=== PATIENT | female | born 1985 | race Caucasian/White ===

== ENCOUNTER 2017-05-23 05:42 | Day surgery (SDC) | payer MEDICAID ==
[2017-05-21 12:18] LABS: ABSOLUTE BASOPHILS # (AUTO) 0.1 10^3/uL (0.0-0.2); ABSOLUTE LYMPHOCYTES (AUTO) 2.1 10^3/uL (0.5-4.7); ABSOLUTE MONOCYTES (AUTO) 0.6 10^3/uL (0.1-1.4); ABSOLUTE NEUT (AUTO) 5.5 10^3/uL (1.7-8.2); BASOPHILS % (AUTO) 1.1 % (0-2); EOSINOPHILS % (AUTO) 0.1 % (0-6); HEMATOCRIT 42.4 % (36.0-47.0); HEMOGLOBIN 14.2 g/dL (12.0-15.5); HGB HCT DIFFERENCE 0.2; LYMPHOCYTES % (AUTO) 25.8 % (13-45); MEAN CORPUSCULAR HEMOGLOBIN 30.4 pg (27.0-33.4); MEAN CORPUSCULAR HGB CONC 33.5 g/dL (32.0-36.0); MEAN CORPUSCULAR VOLUME 91 fl (80-97); MONOCYTES % (AUTO) 7.2 % (3-13); RED BLOOD COUNT 4.67 10^6/uL (3.72-5.28); RED CELL DISTRIBUTION WIDTH 12.9 % (11.5-14.0); SEGMENTED NEUTROPHILS % (AUTO) 65.8 % (42-78); WHITE BLOOD COUNT 8.3 10^3/uL (4.0-10.5)
[2017-05-21 12:21] LABS: APPEARANCE,URINE CLEAR; BILIRUBIN,URINE NEGATIVE (NEGATIVE); GLUCOSE, URINE NEGATIVE (NEGATIVE); KETONES,URINE NEGATIVE (NEGATIVE); LEUKOCYTE ESTERASE,URINE NEGATIVE (NEGATIVE); NITRITE,URINE NEGATIVE (NEGATIVE); PROTEIN,URINE NEGATIVE (NEGATIVE); URINE SPECIFIC GRAVITY 1.008; UROBILINOGEN,URINE NEGATIVE mg/dL (<2.0)
[~2017-05-23 05:42] MED LIST: ACETAMINOPHEN 100 ML IV PRN; LACTATED RINGERS 1000 ML IV PRN; LIDOCAINE 0.5% INJ-PF (5 MG/ML) 50 ML SDV SUBCUT PRN
[2017-05-23] MEDS ORDERED: BUPIVACAINE HCL 0.25 % INJ/PF (2.5 MG/1 ML) 30 ML VIAL ONE (05:46)
[2017-05-23] MEDS ORDERED: ACETAMINOPHEN 0 ML IV ONE (06:03)
[2017-05-23] MEDS ORDERED: MIDAZOLAM 2 MG/2 ML INJ ONE (07:20)
[2017-05-23] MEDS ORDERED: ACETAMINOPHEN 100 ML IV ONE (07:20)
[2017-05-23] MEDS ORDERED: IBUPROFEN INJ 800 MG/8 ML VIAL IV ONE (07:20)
[2017-05-23] MEDS ORDERED: PROPOFOL INJ 200 MG/20 ML VIAL IV ONE (07:20)
[2017-05-23] MEDS ORDERED: HYDROMORPHONE HCL INJ/PF 2 MG/ML AMPULE ONE (07:20)
[2017-05-23] MEDS ORDERED: ONDANSETRON HCL INJ/PF 4 MG/2 ML SDV IV PRN (08:09)
[2017-05-23] MEDS ORDERED: PROMETHAZINE HCL INJ 25 MG/1 ML VIAL IV PRN ×2 (08:09)
[2017-05-23] MEDS ORDERED: MEPERIDINE HCL/PF INJ 25 MG/1 ML DISP.SYRIN IV PRN (08:09)
[2017-05-23] MEDS ORDERED: DIPHENHYDRAMINE HCL 50 MG/ML VIAL IV PRN (08:09)
[2017-05-23] MEDS ORDERED: FENTANYL CITRATE INJ/PF 100 MCG/2 ML AMPUL IV PRN ×3 (08:09)
--- NOTE | 2017-05-23 08:26 | Operative Report ---
Operative Report PREOPERATIVE DIAGNOSIS: Desire for pemanent sterilization with laparoscopic tubal ligation POSTOPERATIVE DIAGNOSIS: Desire for permanent sterilization with laparoscopic tubal ligation OPERATION: Laparoscopic tubal ligation with Filshie clips SURGEON: SARAH WILL ANESTHESIA: GA ESTIMATED BLOOD LOSS: 5 cc INTRAOPERATIVE FINDINGS: Normal appearing uterus, tubes, and ovaries PROCEDURE: After discussing risks, benefits and alternatives of the procedure and obtaining informed consent, the patient was taken to the operating room where general anesthesia was achieved. She was positioned in the dorsal lithotomy position and prepped and draped in the usual standard fashion. Bladder was drained via in and out catheterization. Speculum was placed in the vagina and Hulka uterine manipulator placed. Attention was turned to the patient's abdomen. After pre-medicating with quarter percent Marcaine with epinephrine, a 5 mm skin incision was made in the umbilical fold. Using a 5 mm Optiview trocar, the abdomen was entered under direct visualization. The abdomen was insufflated and the pelvis surveyed with the above findings noted. After pre- medicating with quarter percent Marcaine, an 8 mm skin incision was made in the left lower quadrant and an 8 mm trocar placed under direct visualization. A Filshie clip was placed across the isthmic portion of each fallopian tube. The 8 mm trocar was removed under direct visualization and hemostasis assured. The abdomen was desufflated and the umbilical trocar removed. The skin incisions were closed with 3-0 Monocryl and dermabond applied. The Hulka uterine manipulator was removed. The patient was taken out of dorsal lithotomy position. She was extubated and taken to recovery in stable condition. All sponge, needle, and instrument counts were correct -2.
[2017-05-23] MEDS ORDERED: OXYCODONE HCL IR 5 MG TABLET PO PRN ×2 (08:55→08:56)
[2017-05-23] MEDS ORDERED: HYDROMORPHONE HCL INJ/PF 2 MG/ML AMPULE IV PRN (08:55)
[2017-05-23] MEDS ORDERED: ONDANSETRON HCL INJ/PF 4 MG/2 ML SDV ONE ×2 (09:48→12:09)
[2017-05-23 11:36] VITALS: BP 106/70
[2017-05-23] MEDS ORDERED: DEXAMETHASONE SOD PHOSPHATE INJ 4 MG/1 ML VIAL ONE (12:09)
[2017-05-23] MEDS ORDERED: ROCURONIUM BROMIDE INJ 50 MG/5 ML VIAL IV ONE (12:09)
[2017-05-23] MEDS ORDERED: METOCLOPRAMIDE HCL INJ/PF 10 MG/2 ML SDV ONE (12:09)
[2017-05-23] MEDS ORDERED: SUCCINYLCHOLINE CHLORIDE INJ 200 MG/10 ML VIAL ONE (12:09)
[2017-05-23] MEDS ORDERED: GLYCOPYRROLATE INJ 0.4 MG/2 ML VIAL ONE (12:09)
[2017-05-23] MEDS ORDERED: NEOSTIGMINE METHYLSULFATE 10 MG/10 ML VIAL ONE (12:09)
[2017-05-23] MEDS ORDERED: LIDOCAINE 2% INJ-PF (20 MG/ML) 10 ML AMPUL ONE (12:09)
== END 2017-05-23 11:15 | disposition home or self-care (01) ==
LOC: OROUT 05:42
PROVIDERS: ATTEND Specialist
PROC: 0UL74CZ Occlusion of Bilateral Fallopian Tubes with Extraluminal Device, Percutaneous Endoscopic Approach (ICD-10-PCS; principal; 2017-05-23 07:30)
DX: Z30.2 Encounter for sterilization (principal); F17.210 Nicotine dependence, cigarettes, uncomplicated; I50.9 Heart failure, unspecified; Z91.040 Latex allergy status
CPT/HCPCS: 86900; 86901; 36415; 86850; 85025; 81005; 81025; 58671; J2250; J3490 ×3; J1100; J2765; J1170; J0330; J2405; S0020; J2704; J0131; J1741; 851